=== PATIENT | female | born 1985 | race American Indian/Alaskan Native ===

== ENCOUNTER 2021-04-05 21:00 | Inpatient (IN) | payer SELFPAY ==
[2021-04-05] MEDS ORDERED: ACETAMINOPHEN 325 MG TAB PO ONE (21:30)
--- NOTE | 2021-04-05 21:34 | Emergency Department Report ---
HPI - General Chief Complaint: Dyspnea/Respdistress Time Seen by Provider: 04/05/21 21:20 - HPI HPI: 36-year-old -[place] female presents to the emergency department with complaint of 2 syncopal episodes, lightheadedness/dizziness, and shortness of breath. Patient says that she had her first syncopal episode on the eighth, 5 days ago. The patient was using the bathroom and says that she was reaching for something in the next and she knows she was on the floor. She has been having the generalized lightheadedness since that time. Then again, the day before yesterday, the patient once again passed out while in the bathroom. This time she says that it was witnessed by her boyfriend who was able to catch her and keep her from falling to the ground. He said that she was shaking, almost like she was having a seizure. She complains of a 2 to 3-day history of shortness of breath with a mixed dry and productive cough. She denies any fever, nausea, vomiting, diarrhea, chest pain, lower extremity swelling. She has not taken anything for symptoms prior to presentation. No recent travel or sick contacts at home. The patient is not vaccinated against COVID-19. ED Past Medical Hx - Past Medical History Previous Medical History?: No - Surgical History Past Surgical History?: No - Medications Home Medications: Home Medications Medication Instructions Recorded Confirmed Last Taken Type Albuterol Mdi (or & Nicu Only) 2 puff IH QID PRN #8.5 gram 04/06/21 Unknown Rx [ProAir HFA Inhaler] Azithromycin [Zithromax Z-ANNABEL] 250 mg PO DAILY #6 tab 04/06/21 Unknown Rx ED Review of Systems ROS: Stated complaint: SHORTNESS OF BREATH Other details as noted in HPI Comment: All other systems reviewed and negative Constitutional: weakness. denies: chills, fever Eyes: denies: eye pain, vision change ENT: denies: ear pain, throat pain Respiratory: cough, shortness of breath Cardiovascular: syncope. denies: chest pain Gastrointestinal: denies: abdominal pain, vomiting Genitourinary: denies: dysuria, discharge Musculoskeletal: denies: back pain, arthralgia Skin: denies: rash, lesions Neurological: denies: numbness, paresthesias Physical Exam - Physical Exam Vital Signs: Vital Signs 04/05/21 21:03 Temperature 99.9 F H Pulse Rate 109 H Respiratory 25 H Rate Blood Pressure 119/73 [Right] O2 Sat by Pulse 94 Oximetry Physical Exam: GENERAL: The patient is well-developed well-nourished. HENT: Normocephalic. Atraumatic. Patient has moist mucous membranes. EYES: Extraocular motions are intact. No nystagmus. NECK: Supple. Trachea is midline. CHEST/LUNGS: Clear to auscultation. Mild tachypnea but no accessory muscle use. HEART/CARDIOVASCULAR: Regular. There is mild tachycardia. There is no murmur. ABDOMEN: Abdomen is soft, nontender. Patient has normal bowel sounds. There is no abdominal distention. SKIN: Skin is warm and dry. NEURO: The patient is awake, alert, and oriented. The patient is cooperative. The patient has no focal neurologic deficits. Normal speech. Cranial nerves II through XII grossly intact. No facial asymmetry. No pronator drift or dysmetria. MUSCULOSKELETAL: There is no tenderness or deformity. There is no limitation range of motion. ED Course Vital Signs 04/05/21 21:03 Temperature 99.9 F H Pulse Rate 109 H Respiratory 25 H Rate Blood Pressure 119/73 [Right] O2 Sat by Pulse 94 Oximetry ED Medical Decision Making - Lab Data Result diagrams: 04/05/21 21:36 04/05/21 21:36 Lab Results 04/05/21 04/05/21 04/05/21 Range/Units 21:36 21:36 21:36 WBC 3.8 L (4.5-11.0) K/mm3 RBC 4.56 (3.65-5.03) M/mm3 Hgb 11.7 (10.1-14.3) gm/dl Hct 37.3 (30.3-42.9) % MCV 82 (79-97) fl MCH 26 L (28-32) pg MCHC 31 (30-34) % RDW 13.8 (13.2-15.2) % Plt Count 214 (140-440) K/mm3 Lymph % (Auto) 23.9 (13.4-35.0) % [place] % (Auto) 9.7 H (0.0-7.3) % Eos % (Auto) 0.0 (0.0-4.3) % Baso % (Auto) 0.3 (0.0-1.8) % Lymph # (Auto) 0.9 L (1.2-5.4) K/mm3 [place] # (Auto) 0.4 (0.0-0.8) K/mm3 Eos # (Auto) 0.0 (0.0-0.4) K/mm3 Baso # (Auto) 0.0 (0.0-0.1) K/mm3 Seg Neutrophils % 66.1 (40.0-70.0) % Seg Neutrophils # 2.5 (1.8-7.7) K/mm3 D-Dimer 289.50 H (0-234) ng/mlDDU Sodium 135 L (137-145) mmol/L Potassium 3.7 (3.6-5.0) mmol/L Chloride 96.8 L (98-107) mmol/L Carbon Dioxide 22 (22-30) mmol/L Anion Gap 20 mmol/L BUN 11 (7-17) mg/dL Creatinine 0.9 (0.6-1.2) mg/dL Estimated GFR > 60 ml/min BUN/Creatinine Ratio 12 % Glucose 84 (65-100) mg/dL Calcium 8.2 L (8.4-10.2) mg/dL Ferritin (10.0-200.0) ng/mL Total Bilirubin 0.50 (0.1-1.2) mg/dL AST 32 (5-40) units/L ALT 21 (7-56) units/L Alkaline Phosphatase 52 (35-129) units/L Lactate Dehydrogenase (91-180) units/L Troponin T < 0.010 (0.00-0.029) ng/mL C-Reactive Protein (0.00-1.30) mg/dL NT-Pro-B Natriuret Pep 13.69 (0-450) pg/mL Total Protein 7.2 (6.3-8.2) g/dL Albumin 3.8 L (3.9-5) g/dL Albumin/Globulin Ratio 1.1 % TSH (0.270-4.200) mlU/mL HCG, Qual (Negative) 04/05/21 04/05/21 04/06/21 Range/Units 21:36 21:36 02:00 WBC (4.5-11.0) K/mm3 RBC (3.65-5.03) M/mm3 Hgb (10.1-14.3) gm/dl Hct (30.3-42.9) % MCV (79-97) fl MCH (28-32) pg MCHC (30-34) % RDW (13.2-15.2) % Plt Count (140-440) K/mm3 Lymph % (Auto) (13.4-35.0) % [place] % (Auto) (0.0-7.3) % Eos % (Auto) (0.0-4.3) % Baso % (Auto) (0.0-1.8) % Lymph # (Auto) (1.2-5.4) K/mm3 [place] # (Auto) (0.0-0.8) K/mm3 Eos # (Auto) (0.0-0.4) K/mm3 Baso # (Auto) (0.0-0.1) K/mm3 Seg Neutrophils % (40.0-70.0) % Seg Neutrophils # (1.8-7.7) K/mm3 D-Dimer (0-234) ng/mlDDU Sodium (137-145) mmol/L Potassium (3.6-5.0) mmol/L Chloride (98-107) mmol/L Carbon Dioxide (22-30) mmol/L Anion Gap mmol/L BUN (7-17) mg/dL Creatinine (0.6-1.2) mg/dL Estimated GFR ml/min BUN/Creatinine Ratio % Glucose (65-100) mg/dL Calcium (8.4-10.2) mg/dL Ferritin 402.8 H (10.0-200.0) ng/mL Total Bilirubin (0.1-1.2) mg/dL AST (5-40) units/L ALT (7-56) units/L Alkaline Phosphatase (35-129) units/L Lactate Dehydrogenase (91-180) units/L Troponin T (0.00-0.029) ng/mL C-Reactive Protein (0.00-1.30) mg/dL NT-Pro-B Natriuret Pep (0-450) pg/mL Total Protein (6.3-8.2) g/dL Albumin (3.9-5) g/dL Albumin/Globulin Ratio % TSH 1.560 (0.270-4.200) mlU/mL HCG, Qual Negative (Negative) 04/06/21 Range/Units 02:00 WBC (4.5-11.0) K/mm3 RBC (3.65-5.03) M/mm3 Hgb (10.1-14.3) gm/dl Hct (30.3-42.9) % MCV (79-97) fl MCH (28-32) pg MCHC (30-34) % RDW (13.2-15.2) % Plt Count (140-440) K/mm3 Lymph % (Auto) (13.4-35.0) % [place] % (Auto) (0.0-7.3) % Eos % (Auto) (0.0-4.3) % Baso % (Auto) (0.0-1.8) % Lymph # (Auto) (1.2-5.4) K/mm3 [place] # (Auto) (0.0-0.8) K/mm3 Eos # (Auto) (0.0-0.4) K/mm3 Baso # (Auto) (0.0-0.1) K/mm3 Seg Neutrophils % (40.0-70.0) % Seg Neutrophils # (1.8-7.7) K/mm3 D-Dimer (0-234) ng/mlDDU Sodium (137-145) mmol/L Potassium (3.6-5.0) mmol/L Chloride (98-107) mmol/L Carbon Dioxide (22-30) mmol/L Anion Gap mmol/L BUN (7-17) mg/dL Creatinine (0.6-1.2) mg/dL Estimated GFR ml/min BUN/Creatinine Ratio % Glucose (65-100) mg/dL Calcium (8.4-10.2) mg/dL Ferritin (10.0-200.0) ng/mL Total Bilirubin (0.1-1.2) mg/dL AST (5-40) units/L ALT (7-56) units/L Alkaline Phosphatase (35-129) units/L Lactate Dehydrogenase 371 H (91-180) units/L Troponin T (0.00-0.029) ng/mL C-Reactive Protein 4.30 H (0.00-1.30) mg/dL NT-Pro-B Natriuret Pep (0-450) pg/mL Total Protein (6.3-8.2) g/dL Albumin (3.9-5) g/dL Albumin/Globulin Ratio % TSH (0.270-4.200) mlU/mL HCG, Qual (Negative) - EKG Data -: EKG Interpreted by [facility] EKG shows normal: sinus rhythm, axis (Left axis deviation), intervals, QRS complexes (Low voltage QRS), ST-T waves Rate: normal - EKG Data When compared to previous EKG there are: previous EKG unavailable Interpretation: other (Sinus rhythm at 96 bpm, left axis deviation, low voltage QRS. No ST elevation OK) - Radiology Data Radiology results: report reviewed CT angio chest INDICATION / CLINICAL INFORMATION: SOB, elevated D-dimer, Syncope x 2. TECHNIQUE: Axial CT images were obtained through the chest after injection of 100 cc of Omnipaque 350 IV contrast. 3 plane MIP and/or 3D reconstructions were produced. All CT scans at this location are performed using CT dose reduction for ALARA by means of automated exposure control. COMPARISON: Radiograph from 04/05/2021. FINDINGS: PULMONARY ARTERIES: No central or segmental pulmonary embolus. THORACIC AORTA: No significant abnormality. HEART: No significant abnormality. LYMPHADENOPATHY: No significant thoracic lymphadenopathy. LUNGS/PLEURA: Patchy peripheral predominant airspace consolidation of bilateral lungs, most pronounced within the right lower lobe and right middle lobe. OTHER FINDINGS: None. UPPER ABDOMEN: No acute findings. SKELETAL SYSTEM: No acute osseous findings. IMPRESSION: 1. No evidence for pulmonary embolism. 2. Multifocal pneumonia, most pronounced in the right mid and lower lung. XR chest 1V ap INDICATION / CLINICAL INFORMATION: SOB. COMPARISON: None available. FINDINGS: Findings in the chest are accentuated by body habitus and phase of inspiration. SUPPORT DEVICES: None. HEART /PULMONARY VASCULATURE: No significant abnormality. LUNGS / PLEURA: Hazy asymmetric airspace opacity in the right lung base. No sizable pleural effusion. No pneumothorax. ADDITIONAL FINDINGS: No significant additional findings. IMPRESSION: Mild hazy asymmetric airspace opacity in the right lung base, suspicious for pneumonia. - Medical Decision Making This patient presents to the emergency department with complaint of 2 syncopal episodes over the past 5 days and also the complaints of some lightheadedness/dizziness and shortness of breath. On examination the patient does not have any focal, motor or sensory deficits and her cranial nerves are intact. Patient has some tachypnea but does not appear in any respiratory distress. Chest x-ray shows show some right-sided infiltrates concerning for pneumonia. Patient was given some IV fluid resuscitation, a dose of Decadron, and antibiotics. Initially the patient's labs were remarkable only for a slightly elevated and equivocal D-dimer. She had a CT angiography of the chest that did not show any evidence of pulmonary embolism but does show multifocal bilateral pneumonia worse on the right. We tested the patient with a an ambulatory pulse ox test and the patient's work of breathing increased and her oxygen saturation did not go above 90%. With the chest x-ray findings, hypoxia, and the fact that the patient is not vaccinated for COVID-19, there is a high suspicion that the patient could have COVID-19. The inflammatory markers were sent and came back elevated including LDH, CRP and ferritin levels. Patient will be admitted to the hospital for further evaluation and treatment and was accepted for admission by the hospitalist, Dr. Bales. Critical Care Time: Yes Critical care time in (mins) excluding proc time.: 35 Critical care attestation.: If time is entered above; I have spent that time in minutes in the direct care of this critically ill patient, excluding procedure time. Critical care time was spent on this patient in doing her initial evaluation, multiple reevaluations, ordering and interpretation of labs and imaging, IV fluids, IV antibiotics, IV steroid, and multiple discussions with the patient. Critical Care Time: 35 minutes ED Disposition Clinical Impression: Suspected 2019 novel coronavirus infection, Hypoxia Pneumonia Qualifiers: Pneumonia type: due to unspecified organism Laterality: bilateral Lung location: unspecified part of lung Qualified Code(s): J18.9 - Pneumonia, unspecified organism Syncope Qualifiers: Syncope type: unspecified Qualified Code(s): R55 - Syncope and collapse Disposition: 01 HOME / SELF CARE / HOMELESS Is pt being admited?: Yes Condition: Serious Time of Disposition: 02:14
[2021-04-05 21:56] LABS: Basophils % (Auto) 0.3 % (0.0-1.8); Hematocrit 37.3 % (30.3-42.9); Hemoglobin 11.7 gm/dl (10.1-14.3); Lymphocytes # (Auto) 0.9 K/mm3 (1.2-5.4); Lymphocytes % (Auto) 23.9 % (13.4-35.0); Mean Corpuscular HGB Conc 31 % (30-34); Mean Corpuscular Volume 82 fl (79-97); Monocytes # (Auto) 0.4 K/mm3 (0.0-0.8); Monocytes % (Auto) 9.7 % (0.0-7.3); Platelet Count 214 K/mm3 (140-440); Red Blood Count 4.56 M/mm3 (3.65-5.03); Red Cell Distribution Width 13.8 % (13.2-15.2)
[2021-04-05] MEDS ORDERED: SODIUM CHLORIDE 0.9% 1000 ML 1,000 ML IV ONE (22:13)
[2021-04-05 22:15] LABS: Alanine Aminotransferase 21 units/L (7-56); Albumin 3.8 g/dL (3.9-5); BUN/Creatinine Ratio 12; Blood Urea Nitrogen 11 mg/dL (7-17); Calcium 8.2 mg/dL (8.4-10.2); Hemolysis Index 4
[2021-04-05] MEDS ORDERED: SODIUM CHLORIDE 0.9% 500 ML 500 ML IV ONE (22:31)
--- NOTE | 2021-04-05 23:01 | XRay Report ---
XR chest 1V ap INDICATION / CLINICAL INFORMATION: SOB. COMPARISON: None available. FINDINGS: Findings in the chest are accentuated by body habitus and phase of inspiration. SUPPORT DEVICES: None. HEART /PULMONARY VASCULATURE: No significant abnormality. LUNGS / PLEURA: Hazy asymmetric airspace opacity in the right lung base. No sizable pleural effusion. No pneumothorax. ADDITIONAL FINDINGS: No significant additional findings. IMPRESSION: Mild hazy asymmetric airspace opacity in the right lung base, suspicious for pneumonia. Signer Name: Eagle Alicea MD Signed: 04/05/2021 10:56 PM Workstation Name: [id number]
[2021-04-05] MEDS ORDERED: cefTRIAXone/NS 1 GM/50 ML 1 GM/50 ML BAG IV ONE (23:20)
[2021-04-05] MEDS ORDERED: AZITHROMYCIN/NS 500 MG/250 ML 500 MG/250 ML BAG IV ONE (23:20)
[2021-04-05] MEDS ORDERED: dexAMETHasone 4 MG/ML VIAL IV ONE (23:21)
--- NOTE | 2021-04-05 23:24 | Cat Scan Report ---
CT angio chest INDICATION / CLINICAL INFORMATION: SOB, elevated D-dimer, Syncope x 2. TECHNIQUE: Axial CT images were obtained through the chest after injection of 100 cc of Omnipaque 350 IV contrast. 3 plane MIP and/or 3D reconstructions were produced. All CT scans at this location are performed using CT dose reduction for ALARA by means of automated exposure control. COMPARISON: Radiograph from 04/05/2021. FINDINGS: PULMONARY ARTERIES: No central or segmental pulmonary embolus. THORACIC AORTA: No significant abnormality. HEART: No significant abnormality. LYMPHADENOPATHY: No significant thoracic lymphadenopathy. LUNGS/PLEURA: Patchy peripheral predominant airspace consolidation of bilateral lungs, most pronounce d within the right lower lobe and right middle lobe. OTHER FINDINGS: None. UPPER ABDOMEN: No acute findings. SKELETAL SYSTEM: No acute osseous findings. IMPRESSION: 1. No evidence for pulmonary embolism. 2. Multifocal pneumonia, most pronounced in the right mid and lower lung. Signer Name: Eagle Alicea MD Signed: 04/05/2021 11:20 PM Workstation Name: [id number]
[2021-04-06] MEDS ORDERED: SODIUM CHLORIDE 0.9% 1000 ML 1,000 ML IV ONE (02:21)
[2021-04-06] MEDS ORDERED: SODIUM CHLORIDE 0.9% 1000 ML 1,000 ML IV SCH (03:00)
[2021-04-06] MEDS ORDERED: ONDANSETRON 4 MG/2 ML INJ IV PRN (03:00)
[2021-04-06] MEDS ORDERED: ALBUTEROL 2.5 MG/3 ML NEBU IH PRN (03:00)
[2021-04-06] MEDS ORDERED: ACETAMINOPHEN 325 MG TAB PO PRN (03:00)
[2021-04-06] MEDS ORDERED: HYDROmorphone 1 MG/1 ML INJ IV PRN (03:00)
[2021-04-06] MEDS ORDERED: MORPHINE 2 MG/1 ML INJ IV PRN (03:00)
--- NOTE | 2021-04-06 03:09 | History and Physical Report ---
History of Present Illness Date of examination: 04/06/21 Date of admission: 04/06/21 Chief complaint: Dyspnea Respiratory distress Syncope History of present illness: 36-year-old -[place] female with no significant past medical history was brought to the emergency room because of 2 syncopal episodes, lightheadedness/dizziness, and shortness of breath. Patient had her first syncopal episode on the eighth, 5 days ago. The patient was using the bathroom and says that she was reaching for something in the next and she knows she was on the floor. She has been having the generalized lightheadedness since that time. Then again, the day before yesterday, the patient once again passed out while in the bathroom. This time she says that it was witnessed by her boyfriend who was able to catch her and keep her from falling to the ground. she was shaking, almost like she was having a seizure. She complains of a 2 to 3-day history of shortness of breath with a mixed dry and productive cough. She denies any fever, nausea, vomiting, diarrhea, chest pain, lower extremity swelling. She has not taken anything for symptoms prior to presentation. No recent travel or sick contacts at home. The patient is not vaccinated against COVID-19. In the emergency room CT scan of the chest showed no evidence of pulmonary embolism. Multifocal pneumonia, most pronounced in the right mid and lower lung. We are going to admit the patient we will put the patient on pneumonia pathway we also sent Covid PCR will consult pulmonary for evaluation as well as infectious disease Medications and Allergies Allergies Allergy/AdvReac Type Severity Reaction Status Date / Time No Known Allergies Allergy Verified 04/05/21 21:55 Home Medications Medication Instructions Recorded Confirmed Last Taken Type Albuterol Mdi (or & Nicu Only) 2 puff IH QID PRN #8.5 gram 04/06/21 Unknown Rx [ProAir HFA Inhaler] Azithromycin [Zithromax Z-ANNABEL] 250 mg PO DAILY #6 tab 04/06/21 Unknown Rx Active Meds: Active Medications Acetaminophen (Acetaminophen 325 Mg Tab) 650 mg PO Q4H PRN PRN Reason: Pain MILD(1-3)/Fever >100.5/BOOTHE Albuterol (Albuterol 2.5 Mg/3 Ml Nebu) 2.5 mg IH Q4HRT PRN PRN Reason: Shortness Of Breath Albuterol/Ipratropium (Ipratropium/Albuterol Sulfate 3 Ml Ampul.Neb) 1 ampul IH Q6HRT DINO Dexamethasone (Dexamethasone 4 Mg/Ml Vial) 6 mg IV DAILY DINO Famotidine (Famotidine 20 Mg Tab) 20 mg PO BID DINO Heparin Sodium (Porcine) (Heparin 5,000 Unit/1 Ml Vial) 5,000 unit SUB-Q Q8HR DINO Hydromorphone HCl (Hydromorphone 1 Mg/1 Ml Inj) 0.5 mg IV Q3H PRN PRN Reason: Pain , Severe (7-10) Sodium Chloride (Nacl 0.9% 1000 Ml) 1,000 mls @ 250 mls/hr IV ONCE ONE Stop: 04/06/21 06:20 Sodium Chloride (Nacl 0.9% 1000 Ml) 1,000 mls @ 100 mls/hr IV DIRECT DINO Ceftriaxone Sodium (Rocephin/Ns 2 Gm/100 Ml) 2 gm in 100 mls @ 200 mls/hr IV Q24H DINO; Protocol Azithromycin (Zithromax/Ns) 500 mg in 250 mls @ 250 mls/hr IV Q24H DINO; Pr otocol Morphine Sulfate (Morphine 2 Mg/1 Ml Inj) 2 mg IV Q4H PRN PRN Reason: Pain, Moderate (4-6) Ondansetron HCl (Ondansetron 4 Mg/2 Ml Inj) 4 mg IV Q8H PRN PRN Reason: Nausea And Vomiting Sodium Chloride (Sodium Chloride 0.9% 10 Ml Flush Syringe) 10 ml IV BID [facility] Sodium Chloride (Sodium Chloride 0.9% 10 Ml Flush Syringe) 10 ml IV PRN PRN PRN Reason: LINE FLUSH Review of Systems All systems: negative Constitutional: other (Dizziness, lightheadedness) Cardiovascular: syncope, shortness of breath, dyspnea on exertion Respiratory: cough, cough with sputum, shortness of breath, dyspnea on exertion Exam - Constitutional Vitals: Temp Pulse Resp BP Pulse Ox 97.9 F 85 23 122/44 90 04/06/21 02:04 04/06/21 02:04 04/06/21 02:20 04/06/21 02:04 04/06/21 02:20 General appearance: Present: no acute distress, well-nourished - EENT Eyes: Present: PERRL ENT: hearing intact, clear oral mucosa - Neck Neck: Present: supple, normal ROM - Respiratory Respiratory effort: normal Respiratory: bilateral: diminished - Cardiovascular Heart Sounds: Present: S1 & S2. Absent: rub, click - Extremities Extremities: pulses symmetrical, No edema Peripheral Pulses: within normal limits - Abdominal General gastrointestinal: Present: soft, non-tender, non-distended, normal bowel sounds Female genitourinary: Present: normal - Integumentary Integumentary: Present: clear, warm, dry - Musculoskeletal Musculoskeletal: gait normal, strength equal bilaterally - Psychiatric Psychiatric: appropriate mood/affect, intact judgment & insight - Neurologic Neurologic: CNII-XII intact, moves all extremities HEART Score - HEART Score Troponin: Troponin T < 0.010 ng/mL (0.00-0.029) 04/05/21 21:36 Results - Labs CBC & Chem 7: 04/05/21 21:36 04/05/21 21:36 Labs: Laboratory Last Values WBC 3.8 K/mm3 (4.5-11.0) L 04/05/21 21:36 RBC 4.56 M/mm3 (3.65-5.03) 04/05/21 21:36 Hgb 11.7 gm/dl (10.1-14.3) 04/05/21 21:36 Hct 37.3 % (30.3-42.9) 04/05/21 21:36 MCV 82 fl (79-97) 04/05/21 21:36 MCH 26 pg (28-32) L 04/05/21 21:36 MCHC 31 % (30-34) 04/05/21 21:36 RDW 13.8 % (13.2-15.2) 04/05/21 21:36 Plt Count 214 K/mm3 (140-440) 04/05/21 21:36 Lymph % (Auto) 23.9 % (13.4-35.0) 04/05/21 21:36 [place] % (Auto) 9.7 % (0.0-7.3) H 04/05/21 21:36 Eos % (Auto) 0.0 % (0.0-4.3) 04/05/21 21:36 Baso % (Auto) 0.3 % (0.0-1.8) 04/05/21 21:36 Lymph # (Auto) 0.9 K/mm3 (1.2-5.4) L 04/05/21 21:36 [place] # (Auto) 0.4 K/mm3 (0.0-0.8) 04/05/21 21:36 Eos # (Auto) 0.0 K/mm3 (0.0-0.4) 04/05/21 21:36 Baso # (Auto) 0.0 K/mm3 (0.0-0.1) 04/05/21 21:36 Seg Neutrophils % 66.1 % (40.0-70.0) 04/05/21 21:36 Seg Neutrophils # 2.5 K/mm3 (1.8-7.7) 04/05/21 21:36 D-Dimer 289.50 ng/mlDDU (0-234) H 04/05/21 21:36 Sodium 135 mmol/L (137-145) L 04/05/21 21:36 Potassium 3.7 mmol/L (3.6-5.0) 04/05/21 21:36 Chloride 96.8 mmol/L (98-107) L 04/05/21 21:36 Carbon Dioxide 22 mmol/L (22-30) 04/05/21 21:36 Anion Gap 20 mmol/L 04/05/21 21:36 BUN 11 mg/dL (7-17) 04/05/21 21:36 Creatinine 0.9 mg/dL (0.6-1.2) 04/05/21 21:36 Estimated GFR > 60 ml/min 04/05/21 21:36 BUN/Creatinine Ratio 12 % 04/05/21 21:36 Glucose 84 mg/dL (65-100) 04/05/21 21:36 Calcium 8.2 mg/dL (8.4-10.2) L 04/05/21 21:36 Total Bilirubin 0.50 mg/dL (0.1-1.2) 04/05/21 21:36 AST 32 units/L (5-40) 04/05/21 21:36 ALT 21 units/L (7-56) 04/05/21 21:36 Alkaline Phosphatase 52 units/L (35-129) 04/05/21 21:36 Troponin T < 0.010 ng/mL (0.00-0.029) 04/05/21 21:36 NT-Pro-B Natriuret Pep 13.69 pg/mL (0-450) 04/05/21 21:36 Total Protein 7.2 g/dL (6.3-8.2) 04/05/21 21:36 Albumin 3.8 g/dL (3.9-5) L 04/05/21 21:36 Albumin/Globulin Ratio 1.1 % 04/05/21 21:36 TSH 1.560 mlU/mL (0.270-4.200) 04/05/21 21:36 HCG, Qual Negative (Negative) 04/05/21 21:36 - Imaging and Cardiology CT scan - chest: report reviewed Assessment and Plan VTE prophylaxis?: Chemical Plan of care discussed with patient/family: Yes - Patient Problems (1) Pneumonia Current Visit: Yes Status: Acute Plan to address problem: Admit the patient to the [facility]. Oxygen via nasal cannula triple valve mechanic pulmonate. DuoNeb by nebulizer every 4 hours. Albuterol via nebulizer every 4 hours as needed. Rocephin 2 g IV daily. Zithromax 500 mg IV daily. Dexamethasone 6 mg IV daily. We do the blood culture and sputum culture. We will send the Covid PCR. We also follow Covid inflammatory markers. Will consult pulmonary and infectious disease (2) Suspected 2019 novel coronavirus infection Current Visit: Yes Status: Acute Plan to address problem: Oxygen via nasal cannula triple valve mechanic pulmonate. DuoNeb by nebulizer every 4 hours. Albuterol via nebulizer every 4 hours as needed. Rocephin 2 g IV daily. Zithromax 500 mg IV daily. Dexamethasone 6 mg IV daily. We do the blood culture and sputum culture. We will send the Covid PCR. We also follow Covid inflammatory markers. Will consult pulmonary and infectious disease (3) Hypoxia Current Visit: Yes Status: Acute Plan to address problem: Oxygen via nasal cannula triple valve mechanic pulmonate. DuoNeb by nebulizer every 4 hours. Albuterol via nebulizer every 4 hours as needed. (4) Syncope Current Visit: Yes Status: Acute Plan to address problem: Normal saline at the rate of 100 cc/h. We will monitor the patient closely. Echocardiogram (5) DVT prophylaxis Current Visit: Yes Status: Acute Plan to address problem: Heparin 5000 units subcu every 8 hours for DVT prophylaxis. Pepcid 20 mg p.o. twice daily for GI prophylaxis. Patient is a full code
[2021-04-06 03:35] LABS: C-Reactive Protein 4.3 mg/dL (0.00-1.30)
[2021-04-06] MEDS ORDERED: dexAMETHasone 4 MG/ML VIAL IV SCH ×2 (10:00→23:00)
--- NOTE | 2021-04-06 10:24 | Electrocardiograph Report ---
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
[2021-04-06] MEDS: FAMOTIDINE 20 MG TAB PO SCH ×2 (11:05→21:44)
[2021-04-06] MEDS: IPRATROPIUM/ALBUTEROL SULFATE 3 ML AMPUL.NEB IH SCH ×3 (11:25→20:44)
--- NOTE | 2021-04-06 11:56 | Event Note ---
Date: 04/06/21 Chart reviewed. Full consult to follow: Given history of syncope, which is her main complaint, would consider CT head Agree with COVID [address], not typical for COVID infection but definitely could be. Also with low WBC count on admit, may need to check for HIV but await ID assessment to see what they think Ok with IV steroids and abx therapy IV hydration.
--- NOTE | 2021-04-06 14:31 | Consultation ---
History of Present Illness - Reason for Consult Consult date: 04/06/21 COVID Requesting physician: AVIVA MITTAL - History of Present Illness The patient is a 36-year-old female with obesity admitted to the hospital with shortness of breath and passing out. CT chest revealed no evidence of PE, showed multifocal pneumonia. Admitted as PUI. ID consulted for additional evaluation. Review of Systems: reviewed in the chart, unable to obtain, minimize risk of transmission Medications and Allergies Allergies Allergy/AdvReac Type Severity Reaction Status Date / Time No Known Allergies Allergy Verified 04/05/21 21:55 Home Medications Medication Instructions Recorded Confirmed Last Taken Type Albuterol Mdi (or & Nicu Only) 2 puff IH QID PRN #8.5 gram 04/06/21 Unknown Rx [ProAir HFA Inhaler] Azithromycin [Zithromax Z-ANNABEL] 250 mg PO DAILY #6 tab 04/06/21 Unknown Rx Active Meds: Active Medications Acetaminophen (Acetaminophen 325 Mg Tab) 650 mg PO Q4H PRN PRN Reason: Pain MILD(1-3)/Fever >100.5/BOOTHE Albuterol (Albuterol 2.5 Mg/3 Ml Nebu) 2.5 mg IH Q4HRT PRN PRN Reason: Shortness Of Breath Albuterol/Ipratropium (Ipratropium/Albuterol Sulfate 3 Ml Ampul.Neb) 1 ampul IH Q6HRT [facility] Last Admin: 04/06/21 11:25 Dose: Not Given Documented by: Azithromycin (Azithromycin 250 Mg Tab) 500 mg PO QDAY [facility]; Protocol Dexamethasone (Dexamethasone 4 Mg/Ml Vial) 6 mg IV DAILY [facility] Stop: 04/14/21 10:01 Last Admin: 04/06/21 11:06 Dose: 6 mg Documented by: Famotidine (Famotidine 20 Mg Tab) 20 mg PO BID [facility] Last Admin: 04/06/21 11:05 Dose: 20 mg Documented by: Heparin Sodium (Porcine) (Heparin 5,000 Unit/1 Ml Vial) 5,000 unit SUB-Q Q8HR [facility] Hydromorphone HCl (Hydromorphone 1 Mg/1 Ml Inj) 0.5 mg IV Q3H PRN PRN Reason: Pain , Severe (7-10) Sodium Chloride (Nacl 0.9% 1000 Ml) 1,000 mls @ 100 mls/hr IV DIRECT DINO Ceftriaxone Sodium (Rocephin/Ns 1 Gm/50 Ml) 1 gm in 50 mls @ 100 mls/hr IV Q24H [facility]; Protocol Morphine Sulfate (Morphine 2 Mg/1 Ml Inj) 2 mg IV Q4H PRN PRN Reason: Pain, Moderate (4-6) Ondansetron HCl (Ondansetron 4 Mg/2 Ml Inj) 4 mg IV Q8H PRN PRN Reason: Nausea And Vomiting Sodium Chloride (Sodium Chloride 0.9% 10 Ml Flush Syringe) 10 ml IV BID DINO Sodium Chloride (Sodium Chloride 0.9% 10 Ml Flush Syringe) 10 ml IV PRN PRN PRN Reason: LINE FLUSH Physical Examination - Physical Exam Narrative exam: Physical Exam (reviewed in chart to minimize risk of transmission) Constitutional: deferred Head, Ears, Nose: deferred Eyes: deferred Neck: deferred Oral: deferred Cardiovascular: deferred Respiratory: deferred GI: deferred Musculoskeletal: deferred Skin: deferred Hem/Lymphatic: deferred Psych: deferred Neurological: deferred - Constitutional Vitals: Vital Signs Temp Pulse Resp BP Pulse Ox 97.9 F 56 L 18 122/50 99 04/06/21 02:04 04/06/21 11:00 04/06/21 11:00 04/06/21 14:00 04/06/21 14:00 Temperature -Last 24 Hours Temperature 97.9 F Temperature 99.9 F Results - Labs CBC & Chem 7: 04/05/21 21:36 04/05/21 21:36 Labs: Abnormal lab results 04/05/21 04/05/21 04/05/21 Range/Units 21:36 21:36 21:36 WBC 3.8 L (4.5-11.0) K/mm3 MCH 26 L (28-32) pg [place] % (Auto) 9.7 H (0.0-7.3) % Lymph # (Auto) 0.9 L (1.2-5.4) K/mm3 D-Dimer 289.50 H (0-234) ng/mlDDU Sodium 135 L (137-145) mmol/L Chloride 96.8 L (98-107) mmol/L Calcium 8.2 L (8.4-10.2) mg/dL Ferritin (10.0-200.0) ng/mL Lactate Dehydrogenase (91-180) units/L C-Reactive Protein (0.00-1.30) mg/dL Albumin 3.8 L (3.9-5) g/dL 04/06/21 04/06/21 Range/Units 02:00 02:00 WBC (4.5-11.0) K/mm3 MCH (28-32) pg [place] % (Auto) (0.0-7.3) % Lymph # (Auto) (1.2-5.4) K/mm3 D-Dimer (0-234) ng/mlDDU Sodium (137-145) mmol/L Chloride (98-107) mmol/L Calcium (8.4-10.2) mg/dL Ferritin 402.8 H (10.0-200.0) ng/mL Lactate Dehydrogenase 371 H (91-180) units/L C-Reactive Protein 4.30 H (0.00-1.30) mg/dL Albumin (3.9-5) g/dL - Imaging and Cardiology CT scan - chest: report reviewed, image reviewed (patchy airspace disease) Assessment and Plan Cultures: SARS CoV2 PCR: Pending A/P: 36-year-old female with obesity admitted to the hospital with shortness of breath and passing out admitted with: #Bilateral pneumonia: Follow-up COVID-19 PCR. Labs revealed WBC 3.8, D-dimer 289, CRP 4.3, procalcitonin 0.05, ferritin 402, LDH 371 #Syncope: Evaluation per primary #Leukopenia: Possibly related to viral illness. Recs: -Follow-up COVID-19 PCR, if negative, discontinue Decadron -procalcitonin is low, ceftriaxone not needed. Continue azithromycin for now -If COVID-19 PCR is positive, get ambulatory sats, if she drops <92%, start remdesivir Eddy Mayfield MD, FACP, [facility] O: [phone] F: [phone]
--- NOTE | 2021-04-06 16:09 | Event Note ---
Date: 04/06/21 The patient was seen and evaluated this morning, and she was found to be hemodynamically stable. The patient was on approximately 2 L nasal cannula. Patient was found to be positive for coronavirus 19. IV antibiotics for possible community-acquired pneumonia (azithromycin and Rocephin) were discontinued. Patient will continue with p.o. Decadron. Patient will be evaluated for possible desaturation with exertion.
[2021-04-06] MEDS: HEPARIN 5,000 UNIT/1 ML VIAL SUB-Q SCH ×3 (16:38→21:43)
[2021-04-06] MEDS ORDERED: cefTRIAXone/NS 2 GM/100 ML 2 GM/100 ML BAG IV SCH (23:00)
[2021-04-06] MEDS ORDERED: cefTRIAXone/NS 1 GM/50 ML 1 GM/50 ML BAG IV SCH (23:00)
[2021-04-06] MEDS ORDERED: AZITHROMYCIN/NS 500 MG/250 ML 500 MG/250 ML BAG IV SCH (23:00)
[2021-04-06] MEDS ORDERED: AZITHROMYCIN 250 MG TAB PO SCH (23:00)
[2021-04-07] MEDS: IPRATROPIUM/ALBUTEROL SULFATE 3 ML AMPUL.NEB IH SCH ×2 (05:12→08:25)
[2021-04-07] MEDS: HEPARIN 5,000 UNIT/1 ML VIAL SUB-Q SCH ×3 (05:19→22:44)
[2021-04-07 06:07] LABS: Basophils % (Auto) 0.7 % (0.0-1.8); Hematocrit 34.7 % (30.3-42.9); Hemoglobin 11.1 gm/dl (10.1-14.3); Lymphocytes # (Auto) 0.8 K/mm3 (1.2-5.4); Lymphocytes % (Auto) 18.1 % (13.4-35.0); Mean Corpuscular HGB Conc 32 % (30-34); Mean Corpuscular Volume 81 fl (79-97); Monocytes # (Auto) 0.5 K/mm3 (0.0-0.8); Monocytes % (Auto) 10.6 % (0.0-7.3); Platelet Count 235 K/mm3 (140-440); Red Blood Count 4.29 M/mm3 (3.65-5.03); Red Cell Distribution Width 14.1 % (13.2-15.2)
[2021-04-07 06:38] LABS: Blood Urea Nitrogen 11 mg/dL (7-17); Calcium 8.1 mg/dL (8.4-10.2); Hemolysis Index 3
[2021-04-07 06:45] LABS: BUN/Creatinine Ratio 16
[2021-04-07] MEDS ORDERED: SODIUM PHOSPHATE 15 MMOL in SODIUM CHLORIDE 0.9% 250ML 250 ML IV ONE (09:00)
[2021-04-07] MEDS: DEXAMETHASONE 4 MG TAB PO SCH (09:32)
[2021-04-07] MEDS: MAGNESIUM OXIDE 400 MG TAB PO SCH (09:32)
[2021-04-07] MEDS: FAMOTIDINE 20 MG TAB PO SCH ×2 (09:32→22:44)
[2021-04-07] MEDS: CALCIUM CARBONATE 500 MG TAB CHEW PO SCH ×2 (09:32→22:44)
--- NOTE | 2021-04-07 11:22 | Progress Note ---
Assessment and Plan Cultures: SARS CoV2 PCR: positive A/P: 36-year-old female with obesity admitted to the hospital with shortness of breath and passing out admitted with: #Bilateral pneumonia: secondary to COVID-19. COVID-19 PCR positive. Labs revealed WBC 3.8, D-dimer 289, CRP 4.3, procalcitonin 0.05, ferritin 402, LDH 371 #Acute hypoxic respiratory failure: hypoxic on ambulation, due to above. #Syncope: Evaluation per primary #Leukopenia: Possibly related to viral illness. Recs: -hypoxic on ambulation, agree with steroids x 10 days -also started remdesivir x 5 days -no need for abx -anticoagulation per protocol -get daily ambulatory sats, once better, can consider discharge -trend CRP, d-dimer every 2 days Eddy Mayfield MD, FACP, [facility] O: [phone] F: [phone] Subjective Date of service: 04/07/21 Interval history: No fever. Hypoxic on ambulation. COVID-19 positive. Objective - Exam Narrative Exam: Physical Exam (reviewed in chart to minimize risk of transmission) Constitutional: deferred Head, Ears, Nose: deferred Eyes: deferred Neck: deferred Oral: deferred Cardiovascular: deferred Respiratory: deferred GI: deferred Musculoskeletal: deferred Skin: deferred Hem/Lymphatic: deferred Psych: deferred Neurological: deferred - Constitutional Vitals: Vital Signs Temp Pulse Resp BP Pulse Ox 98.9 F 61 20 117/49 100 04/07/21 04:42 04/07/21 04:42 04/07/21 04:42 04/07/21 04:42 04/07/21 10:00 Temperature -Last 24 Hours Temperature 98.9 F Temperature 98.4 F - Labs CBC & Chem 7: 04/07/21 04:59 04/07/21 04:59 Labs: Abnormal lab results 04/06/21 04/07/21 04/07/21 Range/Units 08:36 04:59 04:59 MCH 26 L (28-32) pg [place] % (Auto) 10.6 H (0.0-7.3) % Lymph # (Auto) 0.8 L (1.2-5.4) K/mm3 Seg Neutrophils % 70.6 H (40.0-70.0) % Calcium 8.1 L (8.4-10.2) mg/dL Phosphorus 2.10 L (2.5-4.5) mg/dL Magnesium 2.50 H (1.7-2.3) mg/dL Coronavirus (PCR) Positive A (Negative)
--- NOTE | 2021-04-07 12:11 | Consultation ---
History of Present Illness Consult date: 04/07/21 Reason for consult: hypoxemia, other (COVID positive) History of present illness: 36 y/o obese female, originally admitted 2 days ago with syncope and dyspnea, now found to be positive for covid with ambulatory sats below 92%. Patient is not vaccinated against COVID 19 Medications and Allergies Allergies Allergy/AdvReac Type Severity Reaction Status Date / Time No Known Allergies Allergy Verified 04/05/21 21:55 Home Medications Medication Instructions Recorded Confirmed Last Taken Type Albuterol Mdi (or & Nicu Only) 2 puff IH QID PRN #8.5 gram 04/06/21 Unknown Rx [ProAir HFA Inhaler] Azithromycin [Zithromax Z-ANNABEL] 250 mg PO DAILY #6 tab 04/06/21 Unknown Rx Active Meds: Active Medications Acetaminophen (Acetaminophen 325 Mg Tab) 650 mg PO Q4H PRN PRN Reason: Pain MILD(1-3)/Fever >100.5/BOOTHE Albuterol (Albuterol 2.5 Mg/3 Ml Nebu) 2.5 mg IH Q4HRT PRN PRN Reason: Shortness Of Breath Albuterol/Ipratropium (Ipratropium/Albuterol Sulfate 3 Ml Ampul.Neb) 1 ampul IH Q6HRT [facility] Last Admin: 04/07/21 08:25 Dose: 1 ampul Documented by: Calcium Carbonate/Glycine (Calcium Carbonate 500 Mg Tab Chew) 1,000 mg PO BID [facility] Stop: 04/07/21 22:01 Last Admin: 04/07/21 09:32 Dose: 1,000 mg Documented by: Dexamethasone (Dexamethasone 4 Mg Tab) 8 mg PO DAILY [facility] Stop: 04/14/21 10:01 Last Admin: 04/07/21 09:32 Dose: 8 mg Documented by: Famotidine (Famotidine 20 Mg Tab) 20 mg PO BID [facility] Last Admin: 04/07/21 09:32 Dose: 20 mg Documented by: Heparin Sodium (Porcine) (Heparin 5,000 Unit/1 Ml Vial) 5,000 unit SUB-Q Q8HR [facility] Last Admin: 04/07/21 05:19 Dose: 5,000 unit Documented by: Hydromorphone HCl (Hydromorphone 1 Mg/1 Ml Inj) 0.5 mg IV Q3H PRN PRN Reason: Pain , Severe (7-10) Sodium Chloride (Nacl 0.9% 1000 Ml) 1,000 mls @ 100 mls/hr IV DIRECT [facility] Last Admin: 04/06/21 21:45 Dose: 100 mls/hr Documented by: Sodium Phosphate 15 mmol/ (Sodium Chloride) 255 mls @ 63 mls/hr IV ONCE ONE Stop: 04/07/21 13:02 Last Admin: 04/07/21 09:36 Dose: 63 mls/hr Documented by: REMDESIVIR 200 mg/ Sodium (Chloride) 250 mls @ 500 mls/hr IV ONCE ONE Stop: 04/07/21 13:29 REMDESIVIR 100 mg/ Sodium (Chloride) 250 mls @ 500 mls/hr IV Q24HR@2100 [facility] Stop: 04/11/21 21:29 Magnesium Oxide (Magnesium Oxide 400 Mg Tab) 400 mg PO QDAY [facility] Stop: 04/10/21 10:01 Last Admin: 04/07/21 09:32 Dose: 400 mg Documented by: Morphine Sulfate (Morphine 2 Mg/1 Ml Inj) 2 mg IV Q4H PRN PRN Reason: Pain, Moderate (4-6) Ondansetron HCl (Ondansetron 4 Mg/2 Ml Inj) 4 mg IV Q8H PRN PRN Reason: Nausea And Vomiting Sodium Chloride (Sodium Chloride 0.9% 10 Ml Flush Syringe) 10 ml IV BID [facility] Last Admin: 04/07/21 09:33 Dose: 10 ml Documented by: Sodium Chloride (Sodium Chloride 0.9% 10 Ml Flush Syringe) 10 ml IV PRN PRN PRN Reason: LINE FLUSH Sodium Chloride (Sodium Chloride 0.9% 50 Ml Ivpb) 50 ml IV Q24HR@2100 [facility] Stop: 04/11/21 21:01 Physical Examination Vital signs: Vital Signs Temp Pulse Resp BP Pulse Ox 99.9 F H 109 H 25 H 119/73 94 04/05/21 21:03 04/05/21 21:03 04/05/21 21:03 04/05/21 21:03 04/05/21 21:03 General appearance: no acute distress, alert Neck: supple Ascultation: Bilateral: diminished breath sounds Results - Laboratory Findings CBC and BMP: 04/07/21 04:59 04/07/21 04:59 PT/INR, D-dimer D-Dimer 289.50 ng/mlDDU (0-234) H 04/05/21 21:36 Abnormal lab findings: Abnormal Labs 04/05/21 04/05/21 04/05/21 21:36 21:36 21:36 WBC 3.8 L MCH 26 L [place] % (Auto) 9.7 H Lymph # (Auto) 0.9 L Seg Neutrophils % D-Dimer 289.50 H Sodium 135 L Chloride 96.8 L Calcium 8.2 L Phosphorus Magnesium Ferritin Lactate Dehydrogenase C-Reactive Protein Albumin 3.8 L Coronavirus (PCR) 04/06/21 04/06/21 04/06/21 02:00 02:00 08:36 WBC MCH [place] % (Auto) Lymph # (Auto) Seg Neutrophils % D-Dimer Sodium Chloride Calcium Phosphorus Magnesium Ferritin 402.8 H Lactate Dehydrogenase 371 H C-Reactive Protein 4.30 H Albumin Coronavirus (PCR) Positive A 04/07/21 04/07/21 04:59 04:59 WBC MCH 26 L [place] % (Auto) 10.6 H Lymph # (Auto) 0.8 L Seg Neutrophils % 70.6 H D-Dimer Sodium Chloride Calcium 8.1 L Phosphorus 2.10 L Magnesium 2.50 H Ferritin Lactate Dehydrogenase C-Reactive Protein Albumin Coronavirus (PCR) - Diagnostic Findings Chest x-ray: image reviewed CT scan - chest: image reviewed Assessment and Plan 36 y/o female with acute respiratory failure secondary to COVID 19 pneumonia 1. Proning 2. Steroids for 10 days, may need to consider BID dosing if oxygen requirement increases given her size 3. Daily net negative fluid balance 4. Remdesivir 5. No aerosols, only puffers if needed 6. Guarded prognosis
--- NOTE | 2021-04-07 12:56 | Progress Note ---
Assessment and Plan Assessment and plan: Patient is a 32-year-old female with no significant past medical history who presented with 5 days of worsening shortness of breath, lightheadedness, and dizziness that was found to be secondary to COVID-19 pneumonia complicated by acute hypoxic respiratory failure. #COVID-19 pneumonia #Acute hypoxic respiratory failure -Coronavirus PCR positive (04/06/2021). D-dimer 289, LDH 371, CRP 4.3. -Azithromycin 500 mg every 24 hours and ceftriaxone 1 g every 24 hours were dis continued. Procalcitonin within normal limits. -Continue Decadron 8 mg every 24 hours for 10 days. -Patient currently requiring 2 L nasal cannula. Walk test was performed, and patient desaturated to 89% without oxygen. Patient required 2 L to improve oxygen saturations 95%. -Incentive spirometer ordered. Patient counseled on how to operate the device, and the patient expresses understanding. -Encouraging patient to walk around within room, utilize incentive spirometer, and sit up in chair. Patient expresses understanding. -Continue droplet and contact precautions. -Wean oxygen as tolerated. -Continue to monitor. #Morbid obesity #Weight loss counseling #Exercise counseling -BMI 36.7 -Counseled patient on the importance of weight loss, incorporating exercise, and overall lifestyle changes with regards to diet. Patient expresses understanding. -Time: +10 minutes #Discharge planning -When patient no longer requires oxygen, patient can be discharged home. #Advanced care planning -Disease education conducted, care plan discussed, diagnoses discussed, prognosis discussed, and patient acknowledges understanding with care plan -Time: +30 minutes Disposition Plan: Continue medical management Total Time Spent with Patient (Minutes): 45 minutes History Interval history: No acute events overnight. Hospitalist Physical - Constitutional Vitals: Temp Pulse Resp BP Pulse Ox 98.9 F 77 18 117/49 100 04/07/21 04:42 04/07/21 08:25 04/07/21 08:25 04/07/21 04:42 04/07/21 10:00 General appearance: Present: no acute distress, well-nourished - EENT Eyes: Present: PERRL, EOM intact ENT: hearing intact, clear oral mucosa, dentition normal - Neck Neck: Present: supple, normal ROM - Respiratory Respiratory effort: normal Respiratory: bilateral: diminished (On 2 L nasal cannula) - Cardiovascular Rhythm: regular Heart Sounds: Present: S1 & S2 - Extremities Extremities: no ischemia, pulses intact, pulses symmetrical, No edema, normal temperature, normal color, Full ROM Peripheral Pulses: within normal limits - Abdominal General gastrointestinal: soft, non-tender, non-distended, normal bowel sounds - Integumentary Integumentary: Present: clear, warm, dry - Psychiatric Psychiatric: appropriate mood/affect, intact judgment & insight, memory intact, cooperative - Neurologic Neurologic: CNII-XII intact, moves all extremities - Allied Health Allied health notes reviewed: nursing HEART Score - HEART Score Troponin: Troponin T < 0.010 ng/mL (0.00-0.029) 04/05/21 21:36 Results - Labs CBC & Chem 7: 04/07/21 04:59 04/07/21 04:59 Labs: Laboratory Last Values WBC 4.5 K/mm3 (4.5-11.0) 04/07/21 04:59 RBC 4.29 M/mm3 (3.65-5.03) 04/07/21 04:59 Hgb 11.1 gm/dl (10.1-14.3) 04/07/21 04:59 Hct 34.7 % (30.3-42.9) 04/07/21 04:59 MCV 81 fl (79-97) 04/07/21 04:59 MCH 26 pg (28-32) L 04/07/21 04:59 MCHC 32 % (30-34) 04/07/21 04:59 RDW 14.1 % (13.2-15.2) 04/07/21 04:59 Plt Count 235 K/mm3 (140-440) 04/07/21 04:59 Lymph % (Auto) 18.1 % (13.4-35.0) 04/07/21 04:59 [place] % (Auto) 10.6 % (0.0-7.3) H 04/07/21 04:59 Eos % (Auto) 0.0 % (0.0-4.3) 04/07/21 04:59 Baso % (Auto) 0.7 % (0.0-1.8) 04/07/21 04:59 Lymph # (Auto) 0.8 K/mm3 (1.2-5.4) L 04/07/21 04:59 [place] # (Auto) 0.5 K/mm3 (0.0-0.8) 04/07/21 04:59 Eos # (Auto) 0.0 K/mm3 (0.0-0.4) 04/07/21 04:59 Baso # (Auto) 0.0 K/mm3 (0.0-0.1) 04/07/21 04:59 Seg Neutrophils % 70.6 % (40.0-70.0) H 04/07/21 04:59 Seg Neutrophils # 3.2 K/mm3 (1.8-7.7) 04/07/21 04:59 D-Dimer 289.50 ng/mlDDU (0-234) H 04/05/21 21:36 Sodium 142 mmol/L (137-145) D 04/07/21 04:59 Potassium 4.3 mmol/L (3.6-5.0) 04/07/21 04:59 Chloride 104.0 mmol/L (98-107) 04/07/21 04:59 Carbon Dioxide 25 mmol/L (22-30) 04/07/21 04:59 Anion Gap 17 mmol/L 04/07/21 04:59 BUN 11 mg/dL (7-17) 04/07/21 04:59 Creatinine 0.7 mg/dL (0.6-1.2) 04/07/21 04:59 Estimated GFR > 60 ml/min 04/07/21 04:59 BUN/Creatinine Ratio 16 % 04/07/21 04:59 Glucose 98 mg/dL (65-100) 04/07/21 04:59 Calcium 8.1 mg/dL (8.4-10.2) L 04/07/21 04:59 Phosphorus 2.10 mg/dL (2.5-4.5) L 04/07/21 04:59 Magnesium 2.50 mg/dL (1.7-2.3) H 04/07/21 04:59 Ferritin 402.8 ng/mL (10.0-200.0) H 04/06/21 02:00 Total Bilirubin 0.50 mg/dL (0.1-1.2) 04/05/21 21:36 AST 32 units/L (5-40) 04/05/21 21:36 ALT 21 units/L (7-56) 04/05/21 21:36 Alkaline Phosphatase 52 units/L (35-129) 04/05/21 21:36 Lactate Dehydrogenase 371 units/L (91-180) H 04/06/21 02:00 Troponin T < 0.010 ng/mL (0.00-0.029) 04/05/21 21:36 C-Reactive Protein 4.30 mg/dL (0.00-1.30) H 04/06/21 02:00 NT-Pro-B Natriuret Pep 13.69 pg/mL (0-450) 04/05/21 21:36 Total Protein 7.2 g/dL (6.3-8.2) 04/05/21 21:36 Albumin 3.8 g/dL (3.9-5) L 04/05/21 21:36 Albumin/Globulin Ratio 1.1 % 04/05/21 21:36 Procalcitonin < 0.05 ng/mL (<0.15) 04/06/21 02:00 TSH 1.560 mlU/mL (0.270-4.200) 04/05/21 21:36 HCG, Qual Negative (Negative) 04/05/21 21:36 Coronavirus (PCR) Positive (Negative) A 04/06/21 08:36 Microbiology: Microbiology 04/06/21 05:47 Peripheral/Venous Blood Culture - Preliminary NO GROWTH AFTER 24 HOURS 04/06/21 06:01 Peripheral/Venous Blood Culture - Preliminary NO GROWTH AFTER 24 HOURS Active Medications - Current Medications Current Medications: Generic Name Dose Route Start Last Admin Trade Name Josafatq PRN Reason Stop Dose Admin Acetaminophen 650 mg 04/06/21 03:00 Acetaminophen 325 Mg Tab PO Q4H PRN Pain MILD(1-3)/Fever >100.5/BOOTHE Calcium Carbonate/Glycine 1,000 mg 04/07/21 10:00 04/07/21 09:32 Calcium Carbonate 500 Mg Tab Chew PO 04/07/21 22:01 1,000 mg BID DINO Administration Dexamethasone 8 mg 04/07/21 10:00 04/07/21 09:32 Dexamethasone 4 Mg Tab PO 04/14/21 10:01 8 mg DAILY DINO Administration Famotidine 20 mg 04/06/21 10:00 04/07/21 09:32 Famotidine 20 Mg Tab PO 20 mg BID DINO Administration Heparin Sodium (Porcine) 5,000 unit 04/06/21 06:00 04/07/21 05:19 Heparin 5,000 Unit/1 Ml Vial SUB-Q 5,000 unit Q8HR DINO Administration Hydromorphone HCl 0.5 mg 04/06/21 03:00 Hydromorphone 1 Mg/1 Ml Inj IV Q3H PRN Pain , Severe (7-10) Sodium Phosphate 15 mmol/ 255 mls @ 63 mls/hr 04/07/21 09:00 04/07/21 09:36 Sodium Chloride IV 04/07/21 13:02 63 mls/hr ONCE ONE Administration REMDESIVIR 200 mg/ Sodium 250 mls @ 500 mls/hr 04/07/21 13:00 Chloride IV 04/07/21 13:29 ONCE ONE REMDESIVIR 100 mg/ Sodium 250 mls @ 500 mls/hr 04/08/21 21:00 Chloride IV 04/11/21 21:29 Q24HR@2100 [facility] Magnesium Oxide 400 mg 04/07/21 10:00 04/07/21 09:32 Magnesium Oxide 400 Mg Tab PO 04/10/21 10:01 400 mg QDAY DINO Administration Morphine Sulfate 2 mg 04/06/21 03:00 Morphine 2 Mg/1 Ml Inj IV Q4H PRN Pain, Moderate (4-6) Ondansetron HCl 4 mg 04/06/21 03:00 Ondansetron 4 Mg/2 Ml Inj IV Q8H PRN Nausea And Vomiting Sodium Chloride 10 ml 04/06/21 10:00 04/07/21 09:33 Sodium Chloride 0.9% 10 Ml Flush Syringe IV 10 ml BID DINO Administration Sodium Chloride 10 ml 04/06/21 03:00 Sodium Chloride 0.9% 10 Ml Flush Syringe IV PRN PRN LINE FLUSH Sodium Chloride 50 ml 04/07/21 13:00 Sodium Chloride 0.9% 50 Ml Ivpb IV 04/11/21 21:01 Q24HR@2100 [facility]
[2021-04-07] MEDS ORDERED: REMDESIVIR 200 MG in SODIUM CHLORIDE 0.9% 250ML 250 ML IV ONE (13:00)
[2021-04-07] MEDS ORDERED: IPRATROPIUM/ALBUTEROL SULFATE 3 ML AMPUL.NEB IH ONE (13:44)
[2021-04-07] MEDS: SODIUM CHLORIDE 0.9% 50 ML IVPB IV SCH (13:54)
[2021-04-07] MEDS ORDERED: ALBUTEROL 8.5 GM MDI INHALATION IH PRN (19:27)
[2021-04-08] MEDS: HEPARIN 5,000 UNIT/1 ML VIAL SUB-Q SCH ×3 (05:35→21:50)
[2021-04-08 07:42] LABS: Alanine Aminotransferase 13 units/L (7-56); Albumin 3.5 g/dL (3.9-5); Blood Urea Nitrogen 9 mg/dL (7-17); Hemolysis Index 3
[2021-04-08 07:45] LABS: Blood Urea Nitrogen 10 mg/dL (7-17); Calcium 8.1 mg/dL (8.4-10.2); Hemolysis Index 1
[2021-04-08 08:10] LABS: BUN/Creatinine Ratio 14
[2021-04-08 08:11] LABS: BUN/Creatinine Ratio 13
[2021-04-08] MEDS: FAMOTIDINE 20 MG TAB PO SCH ×2 (09:53→21:51)
[2021-04-08] MEDS: MAGNESIUM OXIDE 400 MG TAB PO SCH (09:53)
[2021-04-08] MEDS: DEXAMETHASONE 4 MG TAB PO SCH (09:53)
--- NOTE | 2021-04-08 12:03 | Progress Note ---
Assessment and Plan 36 y/o female with acute respiratory failure secondary to COVID 19 pneumonia 04/08/21: Prone, steroids, and negative fluid balance. May consider lasix if oxygen requirement doesn't improve. 1. Proning 2. Steroids for 10 days, may need to consider BID dosing if oxygen requirement increases given her size 3. Daily net negative fluid balance 4. Remdesivir 5. No aerosols, only puffers if needed 6. Guarded prognosis Subjective Date of service: 04/08/21 Interval history: oxygen went up to 3 liters this am Objective Vital Signs - 12hr 04/08/21 04/08/21 05:23 08:00 Temperature 97.9 F Pulse Rate 61 Respiratory 18 20 Rate Blood Pressure 103/49 O2 Sat by Pulse 98 98 Oximetry Constitutional: no acute distress, alert Neck: supple Ascultation: Bilateral: diminished breath sounds CBC and BMP: 04/09/21 Unknown 04/09/21 06:43 ABG, PT/INR, D-dimer: PT/INR, D-dimer D-Dimer 289.50 ng/mlDDU (0-234) H 04/05/21 21:36 Abnormal lab findings: Abnormal Labs 04/05/21 04/05/21 04/05/21 21:36 21:36 21:36 WBC 3.8 L MCH 26 L [place] % (Auto) 9.7 H Lymph # (Auto) 0.9 L Seg Neutrophils % D-Dimer 289.50 H Sodium 135 L Chloride 96.8 L Calcium 8.2 L Phosphorus Magnesium Ferritin Lactate Dehydrogenase C-Reactive Protein Albumin 3.8 L Coronavirus (PCR) 04/06/21 04/06/21 04/06/21 02:00 02:00 08:36 WBC MCH [place] % (Auto) Lymph # (Auto) Seg Neutrophils % D-Dimer Sodium Chloride Calcium Phosphorus Magnesium Ferritin 402.8 H Lactate Dehydrogenase 371 H C-Reactive Protein 4.30 H Albumin Coronavirus (PCR) Positive A 04/07/21 04/07/21 04/08/21 04:59 04:59 06:58 WBC MCH 26 L [place] % (Auto) 10.6 H Lymph # (Auto) 0.8 L Seg Neutrophils % 70.6 H D-Dimer Sodium Chloride Calcium 8.1 L 8.1 L Phosphorus 2.10 L 2.40 L Magnesium 2.50 H 2.60 H Ferritin Lactate Dehydrogenase C-Reactive Protein Albumin Coronavirus (PCR) 04/08/21 06:58 WBC MCH [place] % (Auto) Lymph # (Auto) Seg Neutrophils % D-Dimer Sodium Chloride Calcium 8.0 L Phosphorus Magnesium Ferritin Lactate Dehydrogenase C-Reactive Protein Albumin 3.5 L Coronavirus (PCR)
--- NOTE | 2021-04-08 12:37 | Progress Note ---
Assessment and Plan Assessment and plan: Patient is a 32-year-old female with no significant past medical history who presented with 5 days of worsening shortness of breath, lightheadedness, and dizziness that was found to be secondary to COVID-19 pneumonia complicated by acute hypoxic respiratory failure. #COVID-19 pneumonia #Acute hypoxic respiratory failure -Coronavirus PCR positive (04/06/2021). D-dimer 289, LDH 371, CRP 4.3. -Azithromycin 500 mg every 24 hours and ceftriaxone 1 g every 24 hours were dis continued. Procalcitonin within normal limits. -Continue Decadron 8 mg every 24 hours for 10 days. -Patient currently requiring 2 L nasal cannula. Walk test was performed, and p atient desaturated to 89% without oxygen. Patient required 2 L to improve oxygen saturations 95%. -Continue incentive spirometer. Patient counseled on how to operate the device, and the patient expresses understanding. -Encouraging patient to walk around within room, utilize incentive spirometer, and sit up in chair. Patient expresses understanding. -Continue droplet and contact precautions. -Wean oxygen as tolerated. -Continue to monitor. #Morbid obesity #Weight loss counseling #Exercise counseling -BMI 36.7 -Counseled patient on the importance of weight loss, incorporating exercise, and overall lifestyle changes with regards to diet. Patient expresses understandin g. -Time: +10 minutes #Discharge planning -When patient no longer requires oxygen, patient can be discharged home. #Advanced care planning -Disease education conducted, care plan discussed, diagnoses discussed, prognosis discussed, and patient acknowledges understanding with care plan -Time: +30 minutes Disposition Plan: Continue medical management Total Time Spent with Patient (Minutes): 45 minutes History Interval history: No acute events overnight Hospitalist Physical - Constitutional Vitals: Temp Pulse Resp BP Pulse Ox 97.9 F 61 20 103/49 98 04/08/21 05:23 04/08/21 05:23 04/08/21 08:00 04/08/21 05:23 04/08/21 08:00 General appearance: Present: no acute distress, well-nourished - EENT Eyes: Present: PERRL, EOM intact ENT: hearing intact, clear oral mucosa, dentition normal - Neck Neck: Present: supple, normal ROM - Respiratory Respiratory effort: normal Respiratory: bilateral: diminished (On 2 L nasal cannula) - Cardiovascular Rhythm: regular Heart Sounds: Present: S1 & S2 - Extremities Extremities: no ischemia, pulses intact, pulses symmetrical, No edema, normal temperature, normal color, Full ROM Peripheral Pulses: within normal limits - Abdominal General gastrointestinal: soft, non-tender, non-distended, normal bowel sounds - Integumentary Integumentary: Present: clear, warm, dry - Psychiatric Psychiatric: appropriate mood/affect, intact judgment & insight, memory intact, cooperative - Neurologic Neurologic: CNII-XII intact, moves all extremities - Allied Health Allied health notes reviewed: nursing HEART Score - HEART Score Troponin: Troponin T < 0.010 ng/mL (0.00-0.029) 04/05/21 21:36 Results - Labs CBC & Chem 7: 04/07/21 04:59 04/08/21 06:58 Labs: Laboratory Last Values WBC 4.5 K/mm3 (4.5-11.0) 04/07/21 04:59 RBC 4.29 M/mm3 (3.65-5.03) 04/07/21 04:59 Hgb 11.1 gm/dl (10.1-14.3) 04/07/21 04:59 Hct 34.7 % (30.3-42.9) 04/07/21 04:59 MCV 81 fl (79-97) 04/07/21 04:59 MCH 26 pg (28-32) L 04/07/21 04:59 MCHC 32 % (30-34) 04/07/21 04:59 RDW 14.1 % (13.2-15.2) 04/07/21 04:59 Plt Count 235 K/mm3 (140-440) 04/07/21 04:59 Lymph % (Auto) 18.1 % (13.4-35.0) 04/07/21 04:59 [place] % (Auto) 10.6 % (0.0-7.3) H 04/07/21 04:59 Eos % (Auto) 0.0 % (0.0-4.3) 04/07/21 04:59 Baso % (Auto) 0.7 % (0.0-1.8) 04/07/21 04:59 Lymph # (Auto) 0.8 K/mm3 (1.2-5.4) L 04/07/21 04:59 [place] # (Auto) 0.5 K/mm3 (0.0-0.8) 04/07/21 04:59 Eos # (Auto) 0.0 K/mm3 (0.0-0.4) 04/07/21 04:59 Baso # (Auto) 0.0 K/mm3 (0.0-0.1) 04/07/21 04:59 Seg Neutrophils % 70.6 % (40.0-70.0) H 04/07/21 04:59 Seg Neutrophils # 3.2 K/mm3 (1.8-7.7) 04/07/21 04:59 D-Dimer 289.50 ng/mlDDU (0-234) H 04/05/21 21:36 Sodium 139 mmol/L (137-145) 04/08/21 06:58 Sodium 141 mmol/L (137-145) 04/08/21 06:58 Potassium 3.9 mmol/L (3.6-5.0) 04/08/21 06:58 Potassium 4.0 mmol/L (3.6-5.0) 04/08/21 06:58 Chloride 101.4 mmol/L (98-107) 04/08/21 06:58 Chloride 103.4 mmol/L (98-107) 04/08/21 06:58 Carbon Dioxide 27 mmol/L (22-30) 04/08/21 06:58 Carbon Dioxide 27 mmol/L (22-30) 04/08/21 06:58 Anion Gap 15 mmol/L 04/08/21 06:58 Anion Gap 15 mmol/L 04/08/21 06:58 BUN 9 mg/dL (7-17) 04/08/21 06:58 BUN 10 mg/dL (7-17) 04/08/21 06:58 Creatinine 0.7 mg/dL (0.6-1.2) 04/08/21 06:58 Creatinine 0.7 mg/dL (0.6-1.2) 04/08/21 06:58 Estimated GFR > 60 ml/min 04/08/21 06:58 Estimated GFR > 60 ml/min 04/08/21 06:58 BUN/Creatinine Ratio 13 % 04/08/21 06:58 BUN/Creatinine Ratio 14 % 04/08/21 06:58 Glucose 91 mg/dL (65-100) 04/08/21 06:58 Glucose 93 mg/dL (65-100) 04/08/21 06:58 Calcium 8.0 mg/dL (8.4-10.2) L 04/08/21 06:58 Calcium 8.1 mg/dL (8.4-10.2) L 04/08/21 06:58 Phosphorus 2.40 mg/dL (2.5-4.5) L 04/08/21 06:58 Magnesium 2.60 mg/dL (1.7-2.3) H 04/08/21 06:58 Ferritin 402.8 ng/mL (10.0-200.0) H 04/06/21 02:00 Total Bilirubin 0.20 mg/dL (0.1-1.2) 04/08/21 06:58 AST 15 units/L (5-40) 04/08/21 06:58 ALT 13 units/L (7-56) 04/08/21 06:58 Alkaline Phosphatase 42 units/L (35-129) 04/08/21 06:58 Lactate Dehydrogenase 371 units/L (91-180) H 04/06/21 02:00 Troponin T < 0.010 ng/mL (0.00-0.029) 04/05/21 21:36 C-Reactive Protein 4.30 mg/dL (0.00-1.30) H 04/06/21 02:00 NT-Pro-B Natriuret Pep 13.69 pg/mL (0-450) 04/05/21 21:36 Total Protein 6.5 g/dL (6.3-8.2) 04/08/21 06:58 Albumin 3.5 g/dL (3.9-5) L 04/08/21 06:58 Albumin/Globulin Ratio 1.2 % 04/08/21 06:58 Procalcitonin < 0.05 ng/mL (<0.15) 04/06/21 02:00 TSH 1.560 mlU/mL (0.270-4.200) 04/05/21 21:36 HCG, Qual Negative (Negative) 04/05/21 21:36 Coronavirus (PCR) Positive (Negative) A 04/06/21 08:36 Microbiology: Microbiology 04/06/21 05:47 Peripheral/Venous Blood Culture - Preliminary NO GROWTH AFTER 48 HOURS 04/06/21 06:01 Peripheral/Venous Blood Culture - Preliminary NO GROWTH AFTER 48 HOURS Tapia/IV: Voiding Method Toilet Active Medications - Current Medications Current Medications: Generic Name Dose Route Start Last Admin Trade Name Freq PRN Reason Stop Dose Admin Acetaminophen 650 mg 04/06/21 03:00 Acetaminophen 325 Mg Tab PO Q4H PRN Pain MILD(1-3)/Fever >100.5/BOOTHE Albuterol 2 puff 04/07/21 19:27 Albuterol 8.5 Gm Mdi Inhalation IH Q4HRT PRN Shortness Of Breath Dexamethasone 8 mg 04/07/21 10:00 04/08/21 09:53 Dexamethasone 4 Mg Tab PO 04/14/21 10:01 8 mg DAILY DINO Administration Famotidine 20 mg 04/06/21 10:00 04/08/21 09:53 Famotidine 20 Mg Tab PO 20 mg BID DINO Administration Heparin Sodium (Porcine) 5,000 unit 04/06/21 06:00 04/08/21 05:35 Heparin 5,000 Unit/1 Ml Vial SUB-Q 5,000 unit Q8HR DINO Administration Hydromorphone HCl 0.5 mg 04/06/21 03:00 Hydromorphone 1 Mg/1 Ml Inj IV Q3H PRN Pain , Severe (7-10) REMDESIVIR 100 mg/ Sodium 250 mls @ 500 mls/hr 04/08/21 21:00 Chloride IV 04/11/21 21:29 Q24HR@2100 DINO Magnesium Oxide 400 mg 04/07/21 10:00 04/08/21 09:53 Magnesium Oxide 400 Mg Tab PO 04/10/21 10:01 400 mg QDAY DINO Administration Morphine Sulfate 2 mg 04/06/21 03:00 Morphine 2 Mg/1 Ml Inj IV Q4H PRN Pain, Moderate (4-6) Ondansetron HCl 4 mg 04/06/21 03:00 Ondansetron 4 Mg/2 Ml Inj IV Q8H PRN Nausea And Vomiting Sodium Chloride 10 ml 04/06/21 10:00 04/08/21 09:53 Sodium Chloride 0.9% 10 Ml Flush Syringe IV 10 ml BID DINO Administration Sodium Chloride 10 ml 04/06/21 03:00 Sodium Chloride 0.9% 10 Ml Flush Syringe IV PRN PRN LINE FLUSH Sodium Chloride 50 ml 04/07/21 13:00 04/07/21 13:54 Sodium Chloride 0.9% 50 Ml Ivpb IV 04/11/21 21:01 50 ml Q24HR@2100 DINO Administration
--- NOTE | 2021-04-08 12:52 | Progress Note ---
Assessment and Plan Cultures: SARS CoV2 PCR: positive A/P: 36-year-old female with obesity admitted to the hospital with shortness of breath and passing out admitted with: #Bilateral pneumonia: secondary to COVID-19. COVID-19 PCR positive. Labs revealed WBC 3.8, D-dimer 289, CRP 4.3, procalcitonin 0.05, ferritin 402, LDH 371 #Acute hypoxic respiratory failure: hypoxic on ambulation, due to above. #Syncope: Evaluation per primary #Leukopenia: Possibly related to viral illness. Recs: -continue steroids x 10 days -continue remdesivir, D2 -anticoagulation per protocol -get daily ambulatory sats, once better, can consider discharge, does not need to stay inpatient to complete entire remdesivir course ID will sign off. Please call with questions. Eddy Mayfield MD, FACP, [facility] ([facility]) O: [phone] F: [phone] Subjective Date of service: 04/08/21 Interval history: No fever. Remains on oxygen. Objective - Exam Narrative Exam: Physical Exam (reviewed in chart to minimize risk of transmission) Constitutional: deferred Head, Ears, Nose: deferred Eyes: deferred Neck: deferred Oral: deferred Cardiovascular: deferred Respiratory: deferred GI: deferred Musculoskeletal: deferred Skin: deferred Hem/Lymphatic: deferred Psych: deferred Neurological: deferred - Constitutional Vitals: Vital Signs Temp Pulse Resp BP Pulse Ox 97.9 F 61 20 103/49 98 04/08/21 05:23 04/08/21 05:23 04/08/21 08:00 04/08/21 05:23 04/08/21 08:00 Temperature -Last 24 Hours Temperature 97.9 F Temperature 98.3 F Temperature 97.6 F - Labs CBC & Chem 7: 04/07/21 04:59 04/08/21 06:58 Labs: Abnormal lab results 04/08/21 04/08/21 Range/Units 06:58 06:58 Calcium 8.1 L 8.0 L (8.4-10.2) mg/dL Phosphorus 2.40 L (2.5-4.5) mg/dL Magnesium 2.60 H (1.7-2.3) mg/dL Albumin 3.5 L (3.9-5) g/dL
[2021-04-08] MEDS: SODIUM CHLORIDE 0.9% 50 ML IVPB IV SCH (21:56)
[2021-04-08] MEDS: REMDESIVIR 100 MG in SODIUM CHLORIDE 0.9% 250ML 250 ML IV SCH (21:56)
[2021-04-09] MEDS: HEPARIN 5,000 UNIT/1 ML VIAL SUB-Q SCH ×3 (06:04→22:02)
[2021-04-09] MEDS ORDERED: LACTATED RINGERS 1,000 ML IV ONE (08:00)
[2021-04-09 08:23] LABS: BUN/Creatinine Ratio 15; Blood Urea Nitrogen 12 mg/dL (7-17)
[2021-04-09 08:24] LABS: Alanine Aminotransferase 22 units/L (7-56); Calcium 8.4 mg/dL (8.4-10.2)
[2021-04-09 08:25] LABS: Albumin 3.5 g/dL (3.9-5); Hemolysis Index 3
[2021-04-09] MEDS ORDERED: POTASSIUM PHOSPHATE 15 MMOL in SODIUM CHLORIDE 0.9% 250ML 250 ML IV ONE (08:30)
[2021-04-09 09:24] LABS: Hematocrit 33.4 % (30.3-42.9); Hemoglobin 10.2 gm/dl (10.1-14.3); Mean Corpuscular HGB Conc 31 % (30-34); Mean Corpuscular Volume 81 fl (79-97); Platelet Count 324 K/mm3 (140-440); Red Cell Distribution Width 14.1 % (13.2-15.2)
[2021-04-09] MEDS: MAGNESIUM OXIDE 400 MG TAB PO SCH (11:21)
[2021-04-09] MEDS: FAMOTIDINE 20 MG TAB PO SCH ×2 (11:21→22:02)
[2021-04-09] MEDS: DEXAMETHASONE 4 MG TAB PO SCH (11:22)
[2021-04-09 12:01] LABS: Hypochromasia 1+; Platelet Estimate Consistent w Auto; Total Cells Counted 100
--- NOTE | 2021-04-09 13:42 | Progress Note ---
Assessment and Plan Assessment and plan: Patient is a 32-year-old female with no significant past medical history who presented with 5 days of worsening shortness of breath, lightheadedness, and dizziness that was found to be secondary to COVID-19 pneumonia complicated by acute hypoxic respiratory failure. #COVID-19 pneumonia #Acute hypoxic respiratory failure -Coronavirus PCR positive (04/06/2021). D-dimer 289, LDH 371, CRP 4.3. -Azithromycin 500 mg every 24 hours and ceftriaxone 1 g every 24 hours were dis continued. Procalcitonin within normal limits. -Continue Decadron 8 mg every 24 hours for 10 days. -Patient currently requiring 2 L nasal cannula. Pending repeat walk test. Pre vious walk test showed patient desaturating to 89% without oxygen. -Continue incentive spirometer. Patient counseled on how to operate the device, and the patient expresses understanding. -Encouraging patient to walk around within room, utilize incentive spirometer, and sit up in chair. Patient expresses understanding. -Continue droplet and contact precautions. -Wean oxygen as tolerated. -Continue to monitor. #Morbid obesity #Weight loss counseling #Exercise counseling -BMI 36.7 -Counseled patient on the importance of weight loss, incorporating exercise, and overall lifestyle changes with regards to diet. Patient expresses understanding. -Time: +10 minutes #Discharge planning -When patient no longer requires oxygen, patient can be discharged home. #Advanced care planning -Disease education conducted, care plan discussed, diagnoses discussed, prognosis discussed, and patient acknowledges understanding with care plan -Time: +30 minutes Disposition Plan: Continue medical management Total Time Spent with Patient (Minutes): 45 minutes History Interval history: No acute events overnight. Hospitalist Physical - Constitutional Vitals: Temp Pulse Resp BP Pulse Ox 97.4 F L 53 L 18 92/52 100 04/09/21 05:38 04/09/21 05:38 04/09/21 05:38 04/09/21 05:38 04/09/21 05:38 General appearance: Present: no acute distress, well-nourished, obese - EENT Eyes: Present: PERRL, EOM intact ENT: hearing intact, clear oral mucosa, dentition normal - Neck Neck: Present: supple, normal ROM - Respiratory Respiratory effort: normal Respiratory: bilateral: diminished - Cardiovascular Rhythm: regular Heart Sounds: Present: S1 & S2 - Extremities Extremities: no ischemia, pulses intact, pulses symmetrical, No edema, normal temperature, normal color, Full ROM Peripheral Pulses: within normal limits - Abdominal General gastrointestinal: soft, non-tender, non-distended, normal bowel sounds - Integumentary Integumentary: Present: clear, warm, dry - Psychiatric Psychiatric: appropriate mood/affect, intact judgment & insight, memory intact, cooperative - Neurologic Neurologic: CNII-XII intact, moves all extremities HEART Score - HEART Score Troponin: Troponin T < 0.010 ng/mL (0.00-0.029) 04/05/21 21:36 Results - Labs CBC & Chem 7: 04/09/21 Unknown 04/09/21 06:43 Labs: Laboratory Last Values WBC 4.2 K/mm3 (4.5-11.0) L 04/09/21 Unknown RBC 4.10 M/mm3 (3.65-5.03) 04/09/21 Unknown Hgb 10.2 gm/dl (10.1-14.3) 04/09/21 Unknown Hct 33.4 % (30.3-42.9) 04/09/21 Unknown MCV 81 fl (79-97) 04/09/21 Unknown MCH 25 pg (28-32) L 04/09/21 Unknown MCHC 31 % (30-34) 04/09/21 Unknown RDW 14.1 % (13.2-15.2) 04/09/21 Unknown Plt Count 324 K/mm3 (140-440) 04/09/21 Unknown Lymph % (Auto) 18.1 % (13.4-35.0) 04/07/21 04:59 [place] % (Auto) 10.6 % (0.0-7.3) H 04/07/21 04:59 Eos % (Auto) 0.0 % (0.0-4.3) 04/07/21 04:59 Baso % (Auto) 0.7 % (0.0-1.8) 04/07/21 04:59 Lymph # (Auto) 0.8 K/mm3 (1.2-5.4) L 04/07/21 04:59 [place] # (Auto) 0.5 K/mm3 (0.0-0.8) 04/07/21 04:59 Eos # (Auto) 0.0 K/mm3 (0.0-0.4) 04/07/21 04:59 Baso # (Auto) 0.0 K/mm3 (0.0-0.1) 04/07/21 04:59 Add Manual Diff Complete 04/09/21 Unknown Total Counted 100 04/09/21 Unknown Seg Neutrophils % 70.6 % (40.0-70.0) H 04/07/21 04:59 Seg Neuts % (Manual) 62.0 % (40.0-70.0) 04/09/21 Unknown Lymphocytes % (Manual) 27.0 % (13.4-35.0) 04/09/21 Unknown Monocytes % (Manual) 9.0 % (0.0-7.3) H 04/09/21 Unknown Metamyelocytes % 1.0 % 04/09/21 Unknown Myelocytes % 1.0 % 04/09/21 Unknown Nucleated RBC % Not Reportable 04/09/21 Unknown Seg Neutrophils # 3.2 K/mm3 (1.8-7.7) 04/07/21 04:59 Seg Neutrophils # Man 2.6 K/mm3 (1.8-7.7) 04/09/21 Unknown Band Neutrophils # 0.0 K/mm3 04/09/21 Unknown Lymphocytes # (Manual) 1.1 K/mm3 (1.2-5.4) L 04/09/21 Unknown Abs React Lymphs (Man) 0.0 K/mm3 04/09/21 Unknown Monocytes # (Manual) 0.4 K/mm3 (0.0-0.8) 04/09/21 Unknown Eosinophils # (Manual) 0.0 K/mm3 (0.0-0.4) 04/09/21 Unknown Basophils # (Manual) 0.0 K/mm3 (0.0-0.1) 04/09/21 Unknown Metamyelocytes # 0.0 K/mm3 04/09/21 Unknown Myelocytes # 0.0 K/mm3 04/09/21 Unknown Promyelocytes # 0.0 K/mm3 04/09/21 Unknown Blast Cells # 0.0 K/mm3 04/09/21 Unknown WBC Morphology Not Reportable 04/09/21 Unknown Hypersegmented Neuts Not Reportable 04/09/21 Unknown Hyposegmented Neuts Not Reportable 04/09/21 Unknown Hypogranular Neuts Not Reportable 04/09/21 Unknown Smudge Cells Not Reportable 04/09/21 Unknown Toxic Granulation Not Reportable 04/09/21 Unknown Toxic Vacuolation Not Reportable 04/09/21 Unknown Dohle Bodies Not Reportable 04/09/21 Unknown Pelger-Huet Anomaly Not Reportable 04/09/21 Unknown Mayela Rods Not Reportable 04/09/21 Unknown Platelet Estimate Consistent w auto 04/09/21 Unknown Clumped Platelets Not Reportable 04/09/21 Unknown Plt Clumps, EDTA Not Reportable 04/09/21 Unknown Large Platelets Not Reportable 04/09/21 Unknown Giant Platelets Not Reportable 04/09/21 Unknown Platelet Satelliting Not Reportable 04/09/21 Unknown Plt Morphology Comment Not Reportable 04/09/21 Unknown RBC Morphology Not Reportable 04/09/21 Unknown Dimorphic RBCs Not Reportable 04/09/21 Unknown Polychromasia Not Reportable 04/09/21 Unknown Hypochromasia 1+ 04/09/21 Unknown Poikilocytosis Not Reportable 04/09/21 Unknown Anisocytosis Not Reportable 04/09/21 Unknown Microcytosis Not Reportable 04/09/21 Unknown Macrocytosis Not Reportable 04/09/21 Unknown Spherocytes Not Reportable 04/09/21 Unknown Pappenheimer Bodies Not Reportable 04/09/21 Unknown Sickle Cells Not Reportable 04/09/21 Unknown Target Cells Not Reportable 04/09/21 Unknown Tear Drop Cells Not Reportable 04/09/21 Unknown Ovalocytes Not Reportable 04/09/21 Unknown Helmet Cells Not Reportable 04/09/21 Unknown [place] Bodies Not Reportable 04/09/21 Unknown [place] Rings Not Reportable 04/09/21 Unknown Semmes Cells Not Reportable 04/09/21 Unknown Bite Cells Not Reportable 04/09/21 Unknown Crenated Cell Not Reportable 04/09/21 Unknown Elliptocytes Not Reportable 04/09/21 Unknown Acanthocytes (Spur) Not Reportable 04/09/21 Unknown Rouleaux Not Reportable 04/09/21 Unknown Hemoglobin C Crystals Not Reportable 04/09/21 Unknown Schistocytes Not Reportable 04/09/21 Unknown Malaria parasites Not Reportable 04/09/21 Unknown Daryn Bodies Not Reportable 04/09/21 Unknown Hem Pathologist Commnt No 04/09/21 Unknown D-Dimer 289.50 ng/mlDDU (0-234) H 04/05/21 21:36 Sodium 143 mmol/L (137-145) 04/09/21 06:43 Potassium 3.9 mmol/L (3.6-5.0) 04/09/21 06:43 Chloride 105.0 mmol/L (98-107) 04/09/21 06:43 Carbon Dioxide 28 mmol/L (22-30) 04/09/21 06:43 Anion Gap 14 mmol/L 04/09/21 06:43 BUN 12 mg/dL (7-17) 04/09/21 06:43 Creatinine 0.8 mg/dL (0.6-1.2) 04/09/21 06:43 Estimated GFR > 60 ml/min 04/09/21 06:43 BUN/Creatinine Ratio 15 % 04/09/21 06:43 Glucose 90 mg/dL (65-100) 04/09/21 06:43 Calcium 8.4 mg/dL (8.4-10.2) 04/09/21 06:43 Phosphorus 2.40 mg/dL (2.5-4.5) L 04/08/21 06:58 Magnesium 2.60 mg/dL (1.7-2.3) H 04/08/21 06:58 Ferritin 402.8 ng/mL (10.0-200.0) H 04/06/21 02:00 Total Bilirubin 0.20 mg/dL (0.1-1.2) 04/09/21 06:43 AST 25 units/L (5-40) 04/09/21 06:43 ALT 22 units/L (7-56) 04/09/21 06:43 Alkaline Phosphatase 42 units/L (35-129) 04/09/21 06:43 Lactate Dehydrogenase 371 units/L (91-180) H 04/06/21 02:00 Troponin T < 0.010 ng/mL (0.00-0.029) 04/05/21 21:36 C-Reactive Protein 4.30 mg/dL (0.00-1.30) H 04/06/21 02:00 NT-Pro-B Natriuret Pep 13.69 pg/mL (0-450) 04/05/21 21:36 Total Protein 6.7 g/dL (6.3-8.2) 04/09/21 06:43 Albumin 3.5 g/dL (3.9-5) L 04/09/21 06:43 Albumin/Globulin Ratio 1.1 % 04/09/21 06:43 Procalcitonin < 0.05 ng/mL (<0.15) 04/06/21 02:00 TSH 1.560 mlU/mL (0.270-4.200) 04/05/21 21:36 HCG, Qual Negative (Negative) 04/05/21 21:36 Coronavirus (PCR) Positive (Negative) A 04/06/21 08:36 Microbiology: Microbiology 04/06/21 05:47 Peripheral/Venous Blood Culture - Preliminary NO GROWTH AFTER 72 HOURS 04/06/21 06:01 Peripheral/Venous Blood Culture - Preliminary NO GROWTH AFTER 72 HOURS Tapia/IV: Voiding Method Toilet Active Medications - Current Medications Current Medications: Generic Name Dose Route Start Last Admin Trade Name Freq PRN Reason Stop Dose Admin Acetaminophen 650 mg 04/06/21 03:00 Acetaminophen 325 Mg Tab PO Q4H PRN Pain MILD(1-3)/Fever >100.5/BOOTHE Albuterol 2 puff 04/07/21 19:27 Albuterol 8.5 Gm Mdi Inhalation IH Q4HRT PRN Shortness Of Breath Dexamethasone 8 mg 04/07/21 10:00 04/09/21 11:22 Dexamethasone 4 Mg Tab PO 04/14/21 10:01 8 mg DAILY DINO Administration Famotidine 20 mg 04/06/21 10:00 04/09/21 11:21 Famotidine 20 Mg Tab PO 20 mg BID DINO Administration Heparin Sodium (Porcine) 5,000 unit 04/06/21 06:00 04/09/21 06:04 Heparin 5,000 Unit/1 Ml Vial SUB-Q 5,000 unit Q8HR DINO Administration Hydromorphone HCl 0.5 mg 04/06/21 03:00 Hydromorphone 1 Mg/1 Ml Inj IV Q3H PRN Pain , Severe (7-10) REMDESIVIR 100 mg/ Sodium 250 mls @ 500 mls/hr 04/08/21 21:00 04/08/21 21:56 Chloride IV 04/11/21 21:29 500 mls/hr Q24HR@2100 DINO Administration Magnesium Oxide 400 mg 04/07/21 10:00 04/09/21 11:21 Magnesium Oxide 400 Mg Tab PO 04/10/21 10:01 400 mg QDAY DINO Administration Morphine Sulfate 2 mg 04/06/21 03:00 Morphine 2 Mg/1 Ml Inj IV Q4H PRN Pain, Moderate (4-6) Ondansetron HCl 4 mg 04/06/21 03:00 Ondansetron 4 Mg/2 Ml Inj IV Q8H PRN Nausea And Vomiting Sodium Chloride 10 ml 04/06/21 10:00 04/09/21 11:22 Sodium Chloride 0.9% 10 Ml Flush Syringe IV 10 ml BID DINO Administration Sodium Chloride 10 ml 04/06/21 03:00 Sodium Chloride 0.9% 10 Ml Flush Syringe IV PRN PRN LINE FLUSH Sodium Chloride 50 ml 04/07/21 13:00 04/08/21 21:56 Sodium Chloride 0.9% 50 Ml Ivpb IV 04/11/21 21:01 50 ml Q24HR@2100 DINO Administration
--- NOTE | 2021-04-09 16:21 | Progress Note ---
Assessment and Plan 36 y/o female with acute respiratory failure secondary to COVID 19 pneumonia 04/09/21: Steroids for 10 days. Even though patient has been weaned to room air, still would encourage proning. Will sign off. 1. Proning 2. Steroids for 10 days, may need to consider BID dosing if oxygen requirement increases given her size 3. Daily net negative fluid balance 4. Remdesivir 5. No aerosols, only puffers if needed 6. Guarded prognosis Subjective Date of service: 04/09/21 Interval history: No acute events. Weaned to room air. Objective Vital Signs - 12hr 04/09/21 04/09/21 05:38 10:00 Temperature 97.4 F L Pulse Rate 53 L Respiratory 18 Rate Blood Pressure 92/52 O2 Sat by Pulse 100 95 Oximetry Constitutional: no acute distress, alert Neck: supple Ascultation: Bilateral: diminished breath sounds CBC and BMP: 04/09/21 Unknown 04/09/21 06:43 ABG, PT/INR, D-dimer: PT/INR, D-dimer D-Dimer 289.50 ng/mlDDU (0-234) H 04/05/21 21:36 Abnormal lab findings: Abnormal Labs 04/05/21 04/05/21 04/05/21 21:36 21:36 21:36 WBC 3.8 L MCH 26 L [place] % (Auto) 9.7 H Lymph # (Auto) 0.9 L Seg Neutrophils % Monocytes % (Manual) Lymphocytes # (Manual) D-Dimer 289.50 H Sodium 135 L Chloride 96.8 L Calcium 8.2 L Phosphorus Magnesium Ferritin Lactate Dehydrogenase C-Reactive Protein Albumin 3.8 L Coronavirus (PCR) 04/06/21 04/06/21 04/06/21 02:00 02:00 08:36 WBC MCH [place] % (Auto) Lymph # (Auto) Seg Neutrophils % Monocytes % (Manual) Lymphocytes # (Manual) D-Dimer Sodium Chloride Calcium Phosphorus Magnesium Ferritin 402.8 H Lactate Dehydrogenase 371 H C-Reactive Protein 4.30 H Albumin Coronavirus (PCR) Positive A 04/07/21 04/07/21 04/08/21 04:59 04:59 06:58 WBC MCH 26 L [place] % (Auto) 10.6 H Lymph # (Auto) 0.8 L Seg Neutrophils % 70.6 H Monocytes % (Manual) Lymphocytes # (Manual) D-Dimer Sodium Chloride Calcium 8.1 L 8.1 L Phosphorus 2.10 L 2.40 L Magnesium 2.50 H 2.60 H Ferritin Lactate Dehydrogenase C-Reactive Protein Albumin Coronavirus (PCR) 04/08/21 04/09/21 04/09/21 06:58 06:43 Unknown WBC 4.2 L MCH 25 L [place] % (Auto) Lymph # (Auto) Seg Neutrophils % Monocytes % (Manual) 9.0 H Lymphocytes # (Manual) 1.1 L D-Dimer Sodium Chloride Calcium 8.0 L Phosphorus Magnesium Ferritin Lactate Dehydrogenase C-Reactive Protein Albumin 3.5 L 3.5 L Coronavirus (PCR)
[2021-04-09] MEDS: REMDESIVIR 100 MG in SODIUM CHLORIDE 0.9% 250ML 250 ML IV SCH (22:00)
[2021-04-09] MEDS: SODIUM CHLORIDE 0.9% 50 ML IVPB IV SCH (22:00)
[2021-04-10] MEDS: HEPARIN 5,000 UNIT/1 ML VIAL SUB-Q SCH (05:52)
--- NOTE | 2021-04-10 07:44 | Discharge Summary ---
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 Procedures: None. Hospital course: Patient is a 32-year-old female with no significant past medical history who presented with 5 days of worsening shortness of breath, lightheadedness, and dizziness that was found to be secondary to COVID-19 pneumonia complicated by acute hypoxic respiratory failure. The patient was initiated on steroids and remdesivir for acute hypoxic respiratory failure secondary to Covid pneumonia. The patient was given an incentive spirometer and counseled on how to operate the device. Patient was encouraged to walk around the room, sit up in a chair, and use the incentive spirometer. Walk test was performed on room air with the patient having a pulse ox of approximately 94%. The patient is clinically ready for discharge. Disposition: 01 HOME / SELF CARE / HOMELESS Final Discharge Diagnosis (Prints w/discharge instructions): COVID-19 pneumonia, acute hypoxic respiratory failure, morbid obesity Time spent for discharge: 45 minutes Core Measure Documentation - Palliative Care Palliative Care/ Comfort Measures: Not Applicable - Core Measures Any of the following diagnoses?: none Exam - Constitutional Vitals: Temp Pulse Resp BP Pulse Ox 97.5 F L 53 L 16 97/58 98 04/10/21 04:06 04/10/21 04:06 04/10/21 04:06 04/10/21 04:43 04/10/21 04:06 General appearance: Present: no acute distress, well-nourished, obese - EENT Eyes: Present: PERRL, EOM intact ENT: hearing intact, clear oral mucosa, dentition normal - Neck Neck: Present: supple, normal ROM - Respiratory Respiratory effort: normal Respiratory: bilateral: diminished - Cardiovascular Rhythm: regular Heart Sounds: Present: S1 & S2 - Extremities Extremities: no ischemia, pulses intact, pulses symmetrical, No edema, normal temperature, normal color, Full ROM Peripheral Pulses: within normal limits - Abdominal General gastrointestinal: Present: soft, non-tender, non-distended, normal bowel sounds Female genitourinary: Present: deferred - Rectal Rectal Exam: deferred - Integumentary Integumentary: Present: clear, warm, dry - Musculoskeletal Musculoskeletal: strength equal bilaterally - Psychiatric Psychiatric: appropriate mood/affect, intact judgment & insight, memory intact, cooperative - Neurologic Neurologic: CNII-XII intact, moves all extremities - Allied Health Allied health notes reviewed: nursing Plan Activity: no restrictions Diet: regular Care Plan Goals: Patient is safe to discharge home. Assessment: The patient was admitted for management of acute toxic respiratory failure secondary to Covid pneumonia. The patient was treated with oral steroids and remdesivir. The patient was able to be weaned off of oxygen. The patient will continue oral steroids at home. The patient will continue the use of incentive spirometry at home. The patient expresses understanding. The patient is medically cleared for discharge. Follow up with: PRIMARY CAREMD [Primary Care Provider] - 7 Days MIRIAM MORALES MD [Staff Physician] - 14 Days Prescriptions: dexAMETHasone [Decadron] 8 mg PO DAILY #5 tablet Albuterol Mdi (or & Nicu Only) [ProAir HFA Inhaler] 2 puff IH QID PRN #8.5 gram PRN Reason: Shortness Of Breath Azithromycin [Zithromax Z-ANNABEL] 250 mg PO DAILY #6 tab
[2021-04-10 07:46] LABS: Hematocrit 33.9 % (30.3-42.9); Hemoglobin 10.5 gm/dl (10.1-14.3); Mean Corpuscular HGB Conc 31 % (30-34); Mean Corpuscular Volume 81 fl (79-97); Platelet Count 377 K/mm3 (140-440); Red Cell Distribution Width 13.9 % (13.2-15.2)
[2021-04-10 08:07] LABS: Alanine Aminotransferase 70 units/L (7-56); Albumin 3.4 g/dL (3.9-5); Blood Urea Nitrogen 10 mg/dL (7-17); Calcium 8.2 mg/dL (8.4-10.2); Hemolysis Index 3
[2021-04-10 08:25] LABS: BUN/Creatinine Ratio 17
[2021-04-10 10:30] LABS: Band Neutrophils # (Manual) 0.1 K/mm3; Total Cells Counted 100
[2021-04-10 10:31] LABS: Anisocytosis 1+; Hypochromasia 1+
[2021-04-10] MEDS: DEXAMETHASONE 4 MG TAB PO SCH (10:39)
[2021-04-10] MEDS: FAMOTIDINE 20 MG TAB PO SCH (10:39)
[2021-04-10] MEDS: MAGNESIUM OXIDE 400 MG TAB PO SCH (10:39)
[2021-04-10 12:39] VITALS: BP 94/48
== END 2021-04-10 14:46 | disposition home or self-care (01) | DRG 177 ==
LOC: ED 21:00 → 3A 04-06 03:00 → OBSVTOIN 04-06 10:56 → 3A 04-06 20:46
PROVIDERS: ADMIT Hospitalist; ATTEND Student in an Organized Health Care Education/Training Program
PROC: XW033E5 Introduction of Remdesivir Anti-infective into Peripheral Vein, Percutaneous Approach, New Technology Group 5 (ICD-10-PCS; principal; 2021-04-07)
DX: U07.1 COVID-19 (principal); J12.82 Pneumonia due to coronavirus disease 2019; J96.01 Acute respiratory failure with hypoxia; R55 Syncope and collapse; E66.01 Morbid (severe) obesity due to excess calories; Z68.36 Body mass index [BMI] 36.0-36.9, adult
CPT/HCPCS: 36415; 71045; 71275; 80048; 80053; 82728; 83615; 83735; 83880; 84100; 84145; 84443; 84484; 84703; 85007; 85025; 85379; 86140; 87040; 93005; 94640; 94760; 99291; G0378; J3490; J7510; Q0162; J0456; J0696; J1100; J1644; J7030; J7040; J7050; J7120; J8540; Q9967; U0003